=== PATIENT | male | born 1965 | race Caucasian/White ===

== ENCOUNTER 2023-02-17 10:12 | Emergency (ER) | payer OTHER, MEDICAID, SELFPAY ==
[2023-02-17 10:14] VITALS: BP 155/74; PULSE 94; RESP 14; TEMP 36.4; O2SAT 97; BMI 29.8
--- NOTE | 2023-02-17 11:21 | ED.SKABFB ---
HPI - Skin/Abscess/Foreign Bdy General Chief complaint: Skin/Abscess/Foreign Body Stated complaint: cracked heel/fungus Time Seen by Provider: 02/17/23 10:32 Source: patient Mode of arrival: Ambulatory Limitations: no limitations History of Present Illness HPI narrative: Patient is a 58-year-old male who is here for evaluation of what he thinks his fungus throughout his body. He states he has been dealing with this for the past 4 months. He states you can only see it when using a black light. He states that it is on his clothes and on his furniture at home. He uses a little roller and sees little white specks. He has seen Dermatology. He is completed 2 different courses of anti fungal medications but he states the symptoms are not improving. He states he is not seen his primary doctor. He was concerned about it being on his skin. He states that it is ?eating through his clothes? it is also getting into his lungs. Related Data Allergies Allergy/AdvReac Type Severity Reaction Status Date / Time No Known Drug Allergies Allergy Verified 02/17/23 10:30 Review of Systems Constitutional Constitutional: Reports system reviewed and no additional complaints, except as documented Respiratory Respiratory: Reports system reviewed and no additional complaints, except as documented Integumentary/Breasts Skin/Breast: Reports system reviewed and no additional complaints, except as documented Neurologic Neurologic: Reports system reviewed and no additional complaints, except as documented Patient History Social History Smoking Status: Unknown if ever smoked Smoking Status: Unknown if ever smoked alcohol intake frequency: holidays/special occasions only Substance Use Type: does not use Exam Initial Vital Signs Initial Vital Signs: Vital Signs Temperature 97.5 F L 02/17/23 10:14 Pulse Rate 94 H 02/17/23 10:14 Respiratory Rate 14 02/17/23 10:14 Blood Pressure 155/74 H 02/17/23 10:14 Pulse Oximetry 97 02/17/23 10:14 Oxygen Delivery Method Room Air 02/17/23 10:14 HENMT Head: normal to inspection Resp Effort & Inspection: normal respiratory effort Cardio Rate: regular rate Skin Other: He does have dry skin on his feet. There does not appear to be any cellulitis. Evaluation of his skin with a Wood's lamp does not show any signs of ringworm. Psych Other: Very anxious Course Vital Signs Vital signs: Vital Signs - 8 hr 02/17/23 10:14 Temperature 97.5 F L Pulse Rate 94 H Respiratory Rate 14 Blood Pressure 155/74 H Pulse Oximetry 97 Oxygen Delivery Method Room Air MDM - Skin/Abscess/Foreign Bdy MDM Narrative Medical decision making narrative: Patient is obviously very anxious about his symptoms. Informed him that unfortunately I could not do anything about the issues that he is having at home with regard to things that are on his clothes or are on his furniture. With the pictures that he is showing me and what we see here in the ER it looks more like lint/dirt/phos potentially skin cells. He is no skin findings that are consistent with ringworm. He was concerned about the cracks on his feet. What I see on his feet appears to be more length from his socks. I tried to informed him that there was nothing emergent. Nothing that I would treat with medications here in the ER. I advised that he follow-up with a yard supervisor. He states his yard supervisor is not getting him answers. I advised that he seek another yard supervisor. He was given examples for this. Also recommend that he follow-up with his primary doctor. He seemed very upset about this. He accused me of not listening to him. I did evaluate him thoroughly here in the ER. I do not think that there is an emergent condition. No indication for admission to the hospital. Discharge Plan Departure Patient Disposition: Home Clinical Impression: Dermatitis Activity Restrictions/Additional Instructions: For follow-up you can contact [facility]. There phone number is [phone]. You can also contact [facility] at [phone]. You can also contact the [facility] at [phone]. I also recommend that you contact your primary doctor. If you do not have a primary doctor you can contact [phone] without trying to find a primary provider. Referrals: Miscellaneous,MD Bacilio [Primary Care Provider] - Stand Alone Forms: Patient Portal/API
--- NOTE | 2023-02-17 11:33 | PC.NURSE ---
1030: Pt reports having fungus all over his body and that he has fungus all over his house and car.
== END 2023-02-17 11:27 | disposition home or self-care (01) ==
PROVIDERS: Emergency Provider Emergency Medicine
DX: L30.9 Dermatitis, unspecified (principal)
CPT/HCPCS: 99281

== ENCOUNTER → 2023-10-18 12:38 | Outpatient (CLI) | payer OTHER, MEDICAID, SELFPAY ==
--- NOTE | 2023-10-18 12:41 | DI.RAD.S_ITS ---
PROCEDURE: XR CHEST 2V INDICATIONS: dyspnea TECHNIQUE: 2 views of the chest were acquired. COMPARISON: None. FINDINGS: Surgical changes and devices: None. Lungs and pleura: Lungs are clear. No pleural effusions or pneumothorax. Mediastinum: Mediastinal contours are normal. Heart size is normal. Bones and chest wall: No suspicious bony abnormalities. Soft tissues appear unremarkable. IMPRESSION: No acute cardiopulmonary abnormality. Dictated by: Shaheed Burton M.D. on 10/18/2023 at 14:20 Approved by: Shaheed Burton M.D. on 10/18/2023 at 14:23
== END ==
PROVIDERS: PCP Family Medicine; Referring Provider Student in an Organized Health Care Education/Training Program; Visit Provider Student in an Organized Health Care Education/Training Program
DX: R06.00 Dyspnea, unspecified (principal); R94.2 Abnormal results of pulmonary function studies
CPT/HCPCS: 71046; 94060; 94726; 94729

== ENCOUNTER → 2024-01-12 09:39 | Outpatient (CLI) | payer OTHER, MEDICAID, SELFPAY | PROVIDERS: PCP Family Medicine; Referring Provider Family Medicine; Visit Provider Surgery | DX: L97.822 Non-pressure chronic ulcer of other part of left lower leg with fat layer exposed (principal); I87.2 Venous insufficiency (chronic) (peripheral); R60.0 Localized edema; L53.9 Erythematous condition, unspecified; L03.116 Cellulitis of left lower limb; E11.622 Type 2 diabetes mellitus with other skin ulcer | CPT/HCPCS: 97597; 97598; 99203; 99213 ==

== ENCOUNTER → 2024-01-13 09:35 | Outpatient (CLI) | payer OTHER, MEDICAID, SELFPAY | PROVIDERS: PCP Family Medicine; Referring Provider Family Medicine; Visit Provider Physician Assistant | DX: L97.822 Non-pressure chronic ulcer of other part of left lower leg with fat layer exposed (principal); I87.2 Venous insufficiency (chronic) (peripheral); R60.0 Localized edema; L53.9 Erythematous condition, unspecified; M79.662 Pain in left lower leg | CPT/HCPCS: 99213 ==

== ENCOUNTER → 2024-01-19 11:50 | Outpatient (CLI) | payer OTHER, MEDICAID, SELFPAY | PROVIDERS: PCP Family Medicine; Referring Provider Family Medicine; Visit Provider Surgery | DX: L97.822 Non-pressure chronic ulcer of other part of left lower leg with fat layer exposed (principal); I87.2 Venous insufficiency (chronic) (peripheral); R60.0 Localized edema; L03.116 Cellulitis of left lower limb; E11.622 Type 2 diabetes mellitus with other skin ulcer; M79.662 Pain in left lower leg; Z79.2 Long term (current) use of antibiotics | CPT/HCPCS: 11042; 11045 ==

== ENCOUNTER → 2024-01-24 10:27 | Outpatient (CLI) | payer OTHER, MEDICAID, SELFPAY | PROVIDERS: PCP Family Medicine; Referring Provider Family Medicine; Visit Provider Surgery | DX: L97.822 Non-pressure chronic ulcer of other part of left lower leg with fat layer exposed (principal); I87.2 Venous insufficiency (chronic) (peripheral); E11.622 Type 2 diabetes mellitus with other skin ulcer; R60.0 Localized edema; L53.9 Erythematous condition, unspecified; M79.662 Pain in left lower leg | CPT/HCPCS: 11042; 11045 ==

== ENCOUNTER → 2024-02-01 15:10 | Outpatient (CLI) | payer OTHER, MEDICAID, SELFPAY | PROVIDERS: PCP Family Medicine; Referring Provider Family Medicine; Visit Provider Surgery | DX: L97.822 Non-pressure chronic ulcer of other part of left lower leg with fat layer exposed (principal); I87.2 Venous insufficiency (chronic) (peripheral); R60.0 Localized edema; L53.9 Erythematous condition, unspecified; E11.622 Type 2 diabetes mellitus with other skin ulcer; M79.662 Pain in left lower leg | CPT/HCPCS: 11042 ==

== ENCOUNTER → 2024-02-08 14:09 | Outpatient (CLI) | payer OTHER, MEDICAID, SELFPAY | PROVIDERS: PCP Family Medicine; Referring Provider Family Medicine; Visit Provider Surgery | DX: L97.822 Non-pressure chronic ulcer of other part of left lower leg with fat layer exposed (principal); I87.2 Venous insufficiency (chronic) (peripheral); L53.9 Erythematous condition, unspecified; R60.0 Localized edema; M79.662 Pain in left lower leg | CPT/HCPCS: 87070; 87075; 87077; 87147; 87186; 87205; 99213 ==

== ENCOUNTER → 2024-02-15 14:18 | Outpatient (CLI) | payer OTHER, MEDICAID, SELFPAY | PROVIDERS: PCP Family Medicine; Referring Provider Family Medicine; Visit Provider Surgery | DX: I87.2 Venous insufficiency (chronic) (peripheral) (principal); L97.222 Non-pressure chronic ulcer of left calf with fat layer exposed; R23.4 Changes in skin texture; L08.89 Other specified local infections of the skin and subcutaneous tissue; B95.7 Other staphylococcus as the cause of diseases classified elsewhere; R60.0 Localized edema; E11.40 Type 2 diabetes mellitus with diabetic neuropathy, unspecified; I10 Essential (primary) hypertension | CPT/HCPCS: 11042 ==

== ENCOUNTER → 2024-03-01 13:36 | Outpatient (CLI) | payer OTHER, MEDICAID, SELFPAY | PROVIDERS: PCP Family Medicine; Referring Provider Family Medicine; Visit Provider Surgery | DX: L97.822 Non-pressure chronic ulcer of other part of left lower leg with fat layer exposed (principal); I87.2 Venous insufficiency (chronic) (peripheral); L53.9 Erythematous condition, unspecified; R60.0 Localized edema; E11.622 Type 2 diabetes mellitus with other skin ulcer; L08.89 Other specified local infections of the skin and subcutaneous tissue; Z79.2 Long term (current) use of antibiotics | CPT/HCPCS: 11042 ==

== ENCOUNTER → 2024-03-08 13:32 | Outpatient (CLI) | payer OTHER, MEDICAID, SELFPAY | PROVIDERS: PCP Family Medicine; Referring Provider Family Medicine; Visit Provider Surgery | DX: E11.622 Type 2 diabetes mellitus with other skin ulcer (principal); L97.822 Non-pressure chronic ulcer of other part of left lower leg with fat layer exposed; I87.2 Venous insufficiency (chronic) (peripheral); L53.9 Erythematous condition, unspecified; R60.0 Localized edema; M79.662 Pain in left lower leg | CPT/HCPCS: 11042; 99213 ==

== ENCOUNTER → 2024-03-15 12:59 | Outpatient (CLI) | payer OTHER, MEDICAID, SELFPAY | PROVIDERS: PCP Family Medicine; Referring Provider Family Medicine; Visit Provider Surgery | DX: L97.822 Non-pressure chronic ulcer of other part of left lower leg with fat layer exposed (principal); I87.2 Venous insufficiency (chronic) (peripheral); L53.9 Erythematous condition, unspecified; R60.0 Localized edema; E11.622 Type 2 diabetes mellitus with other skin ulcer | CPT/HCPCS: 11042 ==

== ENCOUNTER → 2024-03-19 08:58 | Outpatient (CLI) | payer OTHER, MEDICAID, SELFPAY | PROVIDERS: PCP Family Medicine; Referring Provider Family Medicine; Visit Provider Surgery | DX: L97.822 Non-pressure chronic ulcer of other part of left lower leg with fat layer exposed (principal); I87.2 Venous insufficiency (chronic) (peripheral); R60.0 Localized edema; L53.9 Erythematous condition, unspecified | CPT/HCPCS: 29581 ==

== ENCOUNTER → 2024-03-22 11:31 | Outpatient (CLI) | payer OTHER, MEDICAID, SELFPAY | PROVIDERS: PCP Family Medicine; Referring Provider Family Medicine; Visit Provider Surgery | DX: I87.2 Venous insufficiency (chronic) (peripheral) (principal); L97.822 Non-pressure chronic ulcer of other part of left lower leg with fat layer exposed; R60.0 Localized edema; E11.40 Type 2 diabetes mellitus with diabetic neuropathy, unspecified; I10 Essential (primary) hypertension | CPT/HCPCS: 11042 ==

== ENCOUNTER → 2024-03-26 08:34 | Outpatient (CLI) | payer OTHER, MEDICAID, SELFPAY | LOC: WC 08:37 | PROVIDERS: PCP Family Medicine; Referring Provider Family Medicine; Visit Provider Surgery | DX: I87.2 Venous insufficiency (chronic) (peripheral) (principal); L97.822 Non-pressure chronic ulcer of other part of left lower leg with fat layer exposed; L53.8 Other specified erythematous conditions; L98.8 Other specified disorders of the skin and subcutaneous tissue; R60.0 Localized edema | CPT/HCPCS: 29581 ==

== ENCOUNTER → 2024-03-29 10:20 | Outpatient (CLI) | payer OTHER, MEDICAID, SELFPAY | PROVIDERS: PCP Family Medicine; Referring Provider Family Medicine; Visit Provider Surgery | DX: I87.2 Venous insufficiency (chronic) (peripheral) (principal); L97.822 Non-pressure chronic ulcer of other part of left lower leg with fat layer exposed; R60.0 Localized edema; L53.8 Other specified erythematous conditions; L98.8 Other specified disorders of the skin and subcutaneous tissue; E11.622 Type 2 diabetes mellitus with other skin ulcer | CPT/HCPCS: 11042 ==

== ENCOUNTER → 2024-04-02 14:32 | Outpatient (CLI) | payer OTHER, MEDICAID, SELFPAY | PROVIDERS: PCP Family Medicine; Referring Provider Family Medicine; Visit Provider Surgery | DX: I87.2 Venous insufficiency (chronic) (peripheral) (principal); L97.822 Non-pressure chronic ulcer of other part of left lower leg with fat layer exposed; L53.8 Other specified erythematous conditions; L98.8 Other specified disorders of the skin and subcutaneous tissue; R60.0 Localized edema | CPT/HCPCS: 29581 ==

== ENCOUNTER → 2024-04-05 11:17 | Outpatient (CLI) | payer OTHER, MEDICAID, SELFPAY | LOC: WC 11:25 | PROVIDERS: PCP Family Medicine; Referring Provider Family Medicine; Visit Provider Surgery | DX: I87.2 Venous insufficiency (chronic) (peripheral) (principal); L97.222 Non-pressure chronic ulcer of left calf with fat layer exposed; L03.116 Cellulitis of left lower limb; L53.8 Other specified erythematous conditions; L98.8 Other specified disorders of the skin and subcutaneous tissue | CPT/HCPCS: 11042; 99213 ==

== ENCOUNTER → 2024-04-09 11:01 | Outpatient (CLI) | payer OTHER, MEDICAID, SELFPAY | LOC: WC 11:02 | PROVIDERS: PCP Family Medicine; Referring Provider Family Medicine; Visit Provider Surgery | DX: I87.2 Venous insufficiency (chronic) (peripheral) (principal); L97.822 Non-pressure chronic ulcer of other part of left lower leg with fat layer exposed; L98.8 Other specified disorders of the skin and subcutaneous tissue; L53.8 Other specified erythematous conditions | CPT/HCPCS: 29581 ==

== ENCOUNTER → 2024-04-12 10:59 | Outpatient (CLI) | payer OTHER, MEDICAID, SELFPAY | LOC: WC 11:02 | PROVIDERS: PCP Family Medicine; Referring Provider Family Medicine; Visit Provider Surgery | DX: I87.2 Venous insufficiency (chronic) (peripheral) (principal); L97.822 Non-pressure chronic ulcer of other part of left lower leg with fat layer exposed; E11.40 Type 2 diabetes mellitus with diabetic neuropathy, unspecified; L53.8 Other specified erythematous conditions; L98.8 Other specified disorders of the skin and subcutaneous tissue; R60.0 Localized edema | CPT/HCPCS: 11042; 87070; 87075; 87077; 87147; 87186; 87205; 99213 ==

== ENCOUNTER → 2024-04-16 10:46 | Outpatient (CLI) | payer OTHER, MEDICAID, SELFPAY | LOC: WC 10:51 | PROVIDERS: PCP Family Medicine; Referring Provider Family Medicine; Visit Provider Surgery | DX: L97.812 Non-pressure chronic ulcer of other part of right lower leg with fat layer exposed (principal); L97.822 Non-pressure chronic ulcer of other part of left lower leg with fat layer exposed; I87.2 Venous insufficiency (chronic) (peripheral); L53.9 Erythematous condition, unspecified; R60.0 Localized edema | CPT/HCPCS: 29581 ==

== ENCOUNTER → 2024-04-19 11:26 | Outpatient (CLI) | payer OTHER, MEDICAID, SELFPAY | LOC: WC 11:28 | PROVIDERS: PCP Family Medicine; Referring Provider Family Medicine; Visit Provider Surgery | DX: L97.812 Non-pressure chronic ulcer of other part of right lower leg with fat layer exposed (principal); I87.2 Venous insufficiency (chronic) (peripheral); L53.9 Erythematous condition, unspecified; R60.0 Localized edema; E11.622 Type 2 diabetes mellitus with other skin ulcer | CPT/HCPCS: 11042; 29581 ==

== ENCOUNTER → 2024-04-23 11:43 | Outpatient (CLI) | payer OTHER, MEDICAID, SELFPAY | PROVIDERS: PCP Family Medicine; Referring Provider Family Medicine; Visit Provider Surgery | DX: I87.2 Venous insufficiency (chronic) (peripheral) (principal); L97.812 Non-pressure chronic ulcer of other part of right lower leg with fat layer exposed; L53.8 Other specified erythematous conditions; R60.0 Localized edema | CPT/HCPCS: 29581 ==

== ENCOUNTER → 2024-04-26 11:13 | Outpatient (CLI) | payer OTHER, MEDICAID, SELFPAY | PROVIDERS: PCP Family Medicine; Referring Provider Family Medicine; Visit Provider Surgery | DX: I87.2 Venous insufficiency (chronic) (peripheral) (principal); R60.0 Localized edema; E11.40 Type 2 diabetes mellitus with diabetic neuropathy, unspecified | CPT/HCPCS: 99213 ==

== ENCOUNTER → 2024-05-03 10:58 | Outpatient (CLI) | payer OTHER, MEDICAID, SELFPAY ==
--- NOTE | 2024-05-03 | OV.WND_ITS ---
PROGRESS NOTE DETAILS PATIENT NAME: KIANA TELLEZ. PATIENT NUMBER: [id number] CLINICIAN: JANNA MILTON PATIENT DATE OF : 1965 PHYSICIAN / DEVULCANIZER OPERATOR: CHRISTOPHER STONE PATIENT SUBJECTIVE CHIEF COMPLAINT THIS INFORMATION WAS OBTAINED FROM THE PATIENT. PAIN ALLERGIES METFORMIN (REACTION: ANXIETY, DIARRHEA, GI INTOLERANCE, ITCHING, SWELLING) HPI THIS INFORMATION WAS OBTAINED FROM THE PATIENT. THE FOLLOWING HPI ELEMENTS WERE DOCUMENTED FOR THE PATIENT'S WOUND: LOCATION: [facility] DURATION: 05/03/24 CONTEXT: VENOUS PATIENT IS A 59-YEAR-OLD MALE WITH DIABETES AND CHRONIC VENOUS INSUFFICIENCY WHO RETURNS TODAY FOR EVALUATION OF A NEW ULCER ON THE ANTERIOR RIGHT LOWER EXTREMITY. THE PATIENT REPORTS HE IS HAVING SOME PAIN AND SOME SEROUS DRAINAGE. HE HAS BEEN STANDING MORE THAN USUAL. THE PATIENT HAS BEEN USING VELCRO WRAPS TO HELP CONTROL SWELLING. THE PATIENT SLEEPS SITTING UPRIGHT IN A CHAIR WITH THE HIS LEGS IN THE DEPENDENT POSITION. OTHER ULCERS ON BOTH LOWER EXTREMITIES WERE NOTED TO BE HEALED AT HIS LAST VISIT ON APRIL 26, 2024. THE PATIENT REPORTS A GOOD APPETITE AND DENIES HAVING ANY OTHER RECENT CHANGES IN HIS OVERALL HEALTH. PREVIOUS ABIS SHOWED FLOW ADEQUATE FOR HEALING. RECENT HEMOGLOBIN A1C WAS 10. THE PATIENT REMAINS CONVINCED THAT HE HAS EXTENSIVE FUNGUS ALL OVER HIS BODY. HE IS STILL ON 90 MG OF HYDROCODONE EACH DAY FOR SCIATICA. LABS 04/12/24: CULTURES GREW STAPHYLOCOCCUS AUREUS AND STREPTOCOCCUS GROUP B 02/08/24: CULTURES GREW STAPHYLOCOCCUS LUGDUNENSIS FAMILY HISTORY THIS INFORMATION WAS OBTAINED FROM THE PATIENT. DIABETES- FATHER SOCIAL HISTORY THIS INFORMATION WAS OBTAINED FROM THE CHART, PATIENT. NEVER SMOKER MEDICAL HISTORY THIS INFORMATION WAS OBTAINED FROM THE CHART, PATIENT. 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 PATIENT HAS A SURGICAL HISTORY OF: ANKLE FRACTURE SURGERY- APPENDECTOMY- HERNIA REPAIR- SPINE SURGERY- UMBILICAL HERNIA REPAIR- REVIEW OF SYSTEMS (ROS) THIS INFORMATION WAS OBTAINED FROM THE PATIENT. COMPLAINTS AND SYMPTOMS PATIENT COM PLAINS OF: CARDIOVASCULAR (CENTRAL): DYSPNEA ON EXERTION CO-MORBID CONDITIONS: DIABETES, VENOUS INSUFFIENCY HEMATOLOGIC/LYMPHATIC: SWELLING PRIOR WOUND HISTORY: BLEEDING, DRAINAGE, ERYTHEMA, MALODOR, PAIN PATIENT DENIES COM PLAINTS OR SY M PTOM S RELATED TO: CARDIOVASCULAR (CENTRAL): CHEST PAIN CONSTITUTIONAL SYMPTOMS (GENERAL HEALTH): CHILLS, FEVER, LOSS OF APPETITE RESPIRATORY: COUGH, SHORTNESS OF BREATH OBJECTIVE VITALS HEIGHT/LENGTH: 72 IN (182.88 CM), WEIGHT: 249 LBS (113.18 KGS), BMI: 33.8, TEMPERATURE: 97.3 ?F (36.28 ?C), PULSE: 98 BPM, RESPIRATORY RATE: 16 BREATHS/MIN, BLOOD PRESSURE: 139/80 MMHG, PULSE OXIMETRY: 100 %. PHYSICAL EXAM KIANA TELLEZ [id number] 1965 CONSTITUTIONAL: VITAL SIGNS REVIEWED AND NOTED. WELL DEVELOPED, WELL NOURISHED, AND IN NO ACUTE DISTRESS. ALERT AND ORIENTED X3. RESPIRATORY: EVEN RESPIRATIONS WITHOUT USE OF ACCESSORY MUSCLES. NO INTERCOASTAL RETRACTIONS NOTED. EVEN AND NON LABORED RESPIRATION. INTEGUMENTARY (HAIR, SKIN): MILD ERYTHEMA. BILATERAL LOWER EXTREMITY EDEMA. SEE WOUND ASSESSMENT. SKIN WARM AND DRY. NO RASHES. NEUROLOGICAL: SENSATION: SYMMETRIC FUNCTION BY INFORMAL OBSERVATION. PSYCHIATRIC: ORIENTATION TO TIME, PLACE AND PERSON: NORMAL AFFECT WITH NORMAL THOUGHT PATTERN. ADDITIONAL INFORMATION THE PATIENT'S POTENTIAL TO HEAL IS: GOOD. LOWER EXTREMITY ASSESSMENT EDEMA ASSESSMENT: LEFT EXTREMITY: EDEMA IS PRESENT COMPRESSION DEVICE IN USE: YES DEVICE USED CORRECTLY: YES DEVICE IN USE: COMPRESSION STOCKINGS CALF MEASUREMENT 37 CM FROM HEEL WITH LEFT MEASUREMENT OF 45 CM ANKLE MEASUREMENT 5 CM FROM MALEOLOUS WITH LEFT MEASUREMENT OF 29.5 CM FOOT MEASUREMENT 15 CM FROM HEEL WITH LEFT MEASUREMENT OF 26 CM RIGHT EXTREMITY: EDEMA IS PRESENT COMPRESSION DEVICE IN USE: YES DEVICE USED CORRECTLY: YES DEVICE IN USE: COMPRESSION STOCKINGS CALF MEASUREMENT 37 CM FROM HEEL WITH RIGHT MEASUREMENT OF 47.5 CM ANKLE MEASUREMENT 5 CM FROM MALEOLOUS WITH RIGHT MEASUREMENT OF 33 CM FOOT MEASUREMENT 15 CM FROM HEEL WITH RIGHT MEASUREMENT OF 26.2 CM VASCULAR ASSESSMENT LEFT EXTREMITY COLORS, HAIR GROWTH, AND CONDITIONS: EXTREMITY COLOR: PIGMENTED HAIR GROWTH ON EXTREMITY: NO TEMPERATURE OF EXTREMITY: WARM CAPILARY REFILL: < 3 SECONDS ERYTHEMA: YES RIGHT EXTREMITY COLORS, HAIR GROWTH, AND CONDITIONS: EXTREMITY COLOR: PIGMENTED HAIR GROWTH ON EXTREMITY: NO TEMPERATURE OF EXTREMITY: WARM CAPILARY REFILL: < 3 SECONDS ERYTHEMA: NO WOUND ASSESSMENT(S) WOUND #4 RIGHT LEG IS AN ACUTE PARTIAL THICKNESS VENOUS ULCER ACQUIRED ON 05/03/2024 AND HAS RECEIVED A STATUS OF NOT HEALED. INITIAL WOUND ENCOUNTER MEASUREMENTS ARE 0.5CM LENGTH X 4.3CM WIDTH X 0.1 CM DEPTH, WITH AN AREA OF 2.15 SQ CM AND A VOLUME OF 0.215 CUBIC CM. NO TUNNELING HAS BEEN NOTED. NO SINUS TRACT HAS BEEN NOTED. NO UNDERMINING HAS BEEN NOTED. THERE IS A MODERATE AMOUNT OF SEROUS DRAINAGE NOTED. THE PATIENT REPORTS A WOUND PAIN OF LEVEL 0/10. THE WOUND MARGIN IS ATTACHED WOUND BED HAS NO, GRANULATION, NO SLOUGH, NO ESCHAR, NO EPITHELIALIZATION. THE PERIWOUND SKIN EXHIBITED EDEMA AND HEMOSIDEROSIS. THE TEMPERATURE OF THE PERIWOUND SKIN IS WNL. LOCAL PULSE IS PALPABLE. ADDITIONAL INFORMATION OTHER DEVITALIZED TISSUE PRESENT: KIANA MILLER [id number] 1965 ASSESSMENT ACTIVE PROBLEMS ICD-10 (ENCOUNTER DIAGNOSIS) I87.2 - VENOUS INSUFFICIENCY (CHRONIC) (PERIPHERAL) (ENCOUNTER DIAGNOSIS) R60.0 - LOCALIZED EDEMA (ENCOUNTER DIAGNOSIS) L97.811 - NON-PRESSURE CHRONIC ULCER OF OTHER PART OF RIGHT LOWER LEG LIMITED TO BREAKDOWN OF SKIN GENERAL NOTES ULCER ANTERIOR RIGHT LOWER EXTREMITY, NO SIGN OF INFECTION THE FOLLOWING FACTORS HAVE BEEN IDENTIFIED THAT MAY AFFECT WOUND HEALING: DEVITALIZED TISSUE BIOFILM EDEMA VENOUS INSUFFICIENCY DIABETES INFECTION GOALS: REMOVE DEVITALIZED TISSUE REMOVE AND PREVENT BIOFILM TREAT INFECTION REDUCE SWELLING WOUND CLOSURE PREVENT RECURRENCE PLAN: MECHANICAL DEBRIDEMENT, START DRESSING CHANGES WITH XEROFORM AND BILATERAL REGULAR MULTILAYER COMPRESSION. THE PATIENT ADVISED TO KEEP HER LEGS ELEVATED MUCH POSSIBLE, CONTINUE PROTEIN SUPPLEMENTATION, FOLLOW UP IN 1 WEEK FOR A RECHECK. PROCEDURES WOUND #4 WOUND #4 (VENOUS ULCER) IS LOCATED ON THE RIGHT LEG. A MULTILAYER COMPRESSION PROCEDURE WAS PERFORMED FOR THE LOWER RIGHT EXTREMITY BY JANNA MILTON RN. A 2 LAYER COBAN WRAP WAS APPLIED. THE PROCEDURE WAS TOLERATED WELL WITH A PAIN LEVEL OF 0 THROUGHOUT AND A PAIN LEVEL OF 0 FOLLOWING THE PROCEDURE. GENERAL NOTES COBAN 2 REGULARS A MULTILAYER COMPRESSION PROCEDURE WAS PERFORMED FOR THE LOWER LEFT EXTREMITY BY JANNA MILTON RN. A 2 LAYER COBAN WRAP WAS APPLIED. THE PROCEDURE WAS TOLERATED WELL WITH A PAIN LEVEL OF 0 THROUGHOUT AND A PAIN LEVEL OF 0 FOLLOWING THE PROCEDURE. GENERAL NOTES COBAN 2 REGULARS APPLIED TO HELP MANAGE SEVERE LE EDEMA KIANA GREEN [id number] 1965 WOUND ORDERS: WOUND #4 RIGHT LEG CLEANSER CLEANSE WOUND WITH NORMAL SALINE CLEANSE WOUND WITH HYPOCHLOROUS ACID (VASHE OR SIMILAR) THEN APPLY HYPOCHLOROUS ACID SOAKED 4X4 GAUZE TO WOUND BED FOR 5-10 MINUTES AFTER WOUND ASSESSMENT COMPLETED. DRESSING ORDERS APPLY DRESSING(S) AND SECURE WITH: - XEROFORM, ABD ADDITIONAL ORDERS: DRESSING CHANGE FREQUENCY LEAVE DRESSING INTACT UNTIL YOUR NEXT WOUND CENTER APPOINTMENT. KEEP DRY. COMPRESSION/EDEMA CONTROL ELEVATE LEG(S) ABOVE THE LEVEL OF THE HEART MUCH POSSIBLE. AVOID STANDING IN ONE POSITION FOR MORE THAN 10 MINUTES. AVOID SITTING WITH LEGS DOWN. DO NOT CROSS LEGS WHEN SITTING. APPLY MULTI LAYER WRAP TO AFFECTED LEG(S) AT 20-30MMHG. - COBAN 2 REGULARS BILATERALLY DIETARY TAKE VITAMIN C 1000MG BY MOUTH DAILY. TAKE ZINC 25MG BY MOUTH DAILY. FOLLOW A DIABETIC DIET. INCREASE THE PROTEIN IN YOUR DIET. - DIABETIC PROTEIN SUPPLEMENT SUCH GLUCERNA. FOLLOW-UP APPOINTMENTS RETURN APPOINTMENT 1 WEEK SCRIBING ATTESTATION I ATTEST, THE NURSE, THAT I SCRIBED THESE ORDERS FOR THE WOUND CARE PROVIDER. PROVIDER REVIEW AND ATTESTATION: REVIEWED AND EVALUATED LABS. REVIEWED HOSPITAL RECORDS. DISCUSSED THE PLAN OF CARE @ BEDSIDE WITH - THE PATIENT I AGREE AND ATTEST TO THE ABOVE INFORMATION PROVIDED FROM OTHER LICENSED PROFESSIONALS. PLAN OF CARE: 01. ENSURE/ESTABLISH OPTIMAL BLOOD FLOW : - COMPLETE LOWER EXTREMITY ASSESSMENT STATUS: CONTINUED DATE: 05/03/2024 - PERFORM NON-INVASIVE VASCULAR TESTING (I.E. MERE) AND DOCUMENT FINDINGS. CONSIDER REPEATING WHEN WOUND HEALING <40% AFTER 30 DAYS OF WOUND CARE. STATUS: COMPLETED DATE: 02/01/2024 02. ASSESS FOR/TREAT INFECTION : - EVALUATE FOR SIGNS AND SYMPTOMS OF INFECTION AND DOCUMENT FINDINGS. STATUS: CONTINUED DATE: 05/03/2024 - OBTAIN CULTURE AND SENSITIVITY (CANDS) OR TISSUE CULTURE WHEN INFECTION IS SUSPECTED. (NOTE:) CONSIDER REPEATING WHEN WOUND HEALING <40% AFTER 30 DAYS OF WOUND CARE. STATUS: CONTINUED DATE: 05/03/2024 03. DEBRIDE WEEKLY OR MORE OFTEN PRN : - EVALUATE PATIENT IN CENTER WEEKLY TO ASSESS WOUND BED AND MARGINS FOR NEED FOR DEBRIDEMENT. STATUS: CONTINUED DATE: 05/03/2024 04. OPTIMIZE GLUCOSE CONTROL AND NUTRITION : - ORDER/REVIEW PERTINENT LABS TO EVALUATE RENAL FUNCTION, GLUCOSE CONTROL, AND NUTRITIONAL STATUS. STATUS: CONTINUED DATE: 05/03/2024 05. OFFLOADING PLAN : - REVIEWED, NOT APPLICABLE 06. OPTIMIZE HOST FACTORS: - ASSESS AND REVIEW PATIENT HISTORY FOR WOUND ETIOLOGY, CO-MORBID CONDITIONS, MEDICATION REGIME, AND SMOKING HISTORY. KIANA TELLEZ [id number] 1965 STATUS: CONTINUED DATE: 03/08/2024 07. DRESSING SELECTION : - EVALUATE FOR DRESSING-RELATED FACTORS, SUCH AVAILABILITY, WEAR TIME, ADAPTABILITY AND USE TO BETTER OPTIMIZE WOUND HEALING AND PATIENT COMPLIANCE. STATUS: CONTINUED DATE: 05/03/2024 08. ADVANCED MODALITIES : - EVALUATE FOR APPROPRIATENESS OF CELLULAR TISSUE PRODUCT THERAPY. STATUS: CONTINUED DATE: 04/05/2024 09. FALL PREVENTION : - COMPLETE FALL ASSESSMENT. STATUS: COMPLETED DATE: 01/12/2024 10. PAIN MANAGEMENT : - COMPLETE PAIN ASSESSMENT STATUS: CONTINUED DATE: 05/03/2024 11. MEASURABLE GOALS FOR WOUND HEALING AND/OR HYPERBARIC OXYGEN THERAPY : - WOUND CLOSURE STATUS: CONTINUED DATE: 05/03/2024 12. DURATION/FREQUENCY OF WOUND CARE VISITS : - 1X WEEKLY FOR 30 DAYS STATUS: CONTINUED DATE: 05/03/2024 ELECTRONIC SIGNATURE(S) SIGNED BY: DATE: CHRISTOPHER STONE MD 05/03/2024 15:47:55 (PT) ENTERED BY: CHRISTOPHER STONE MD ON 05/03/2024 15:40:09 (PT) KIANA TELLEZ [id number] 1965
== END ==
PROVIDERS: PCP Family Medicine; Referring Provider Family Medicine; Visit Provider Surgery
DX: I87.2 Venous insufficiency (chronic) (peripheral) (principal); L97.811 Non-pressure chronic ulcer of other part of right lower leg limited to breakdown of skin; R60.0 Localized edema; L98.8 Other specified disorders of the skin and subcutaneous tissue
CPT/HCPCS: 29581; 99213

== ENCOUNTER → 2024-05-08 10:19 | Outpatient (CLI) | payer OTHER, MEDICAID, SELFPAY ==
--- NOTE | 2024-05-08 | OV.WND_ITS ---
PROGRESS NOTE DETAILS PATIENT NAME: KIANA TELLEZ. PATIENT NUMBER: [id number] CLINICIAN: JANNA MILTON PATIENT DATE OF : 1965 PHYSICIAN / BATTERY PLATE ASSEMBLER: CHRISTOPHER STONE PATIENT SUBJECTIVE CHIEF COMPLAINT THIS INFORMATION WAS OBTAINED FROM THE PATIENT. SOME NUMBNESS.. BUT SWELLING IS A LITTLE BETTER ALLERGIES METFORMIN (REACTION: ANXIETY, DIARRHEA, GI INTOLERANCE, ITCHING, SWELLING) HPI THIS INFORMATION WAS OBTAINED FROM THE PATIENT. THE FOLLOWING HPI ELEMENTS WERE DOCUMENTED FOR THE PATIENT'S WOUND: LOCATION: [facility] DURATION: 05/03/24 CONTEXT: VENOUS PATIENT IS A 59-YEAR-OLD MALE WITH DIABETES AND CHRONIC VENOUS INSUFFICIENCY WHO RETURNS TODAY FOR EVALUATION OF A NEW ULCER ON THE ANTERIOR RIGHT LOWER EXTREMITY. HE IS RECEIVING DRESSING CHANGES WITH XEROFORM GAUZE WITH BILATERAL REGULAR MULTILAYER COMPRESSION. THE PATIENT DENIES HAVING ANY UNUSUAL PAIN OR DISCOMFORT NOR HAS HE HAD ANY FEVER OR CHILLS. THE PATIENT SLEEPS SITTING UPRIGHT IN A CHAIR WITH THE HIS LEGS IN THE DEPENDENT POSITION. THE PATIENT REPORTS A GOOD APPETITE AND DENIES HAVING ANY OTHER RECENT CHANGES IN HIS OVERALL HEALTH. ON EXAM TODAY THE SCATTERED ULCERATIONS OF THE RIGHT LOWER EXTREMITY APPEAR TO BE IMPROVED, NO SIGN OF INFECTION. PREVIOUS ABIS SHOWED FLOW ADEQUATE FOR HEALING. RECENT HEMOGLOBIN A1C WAS 10. THE PATIENT REMAINS CONVINCED THAT HE HAS EXTENSIVE FUNGUS ALL OVER HIS BODY. HE IS STILL ON 90 MG OF HYDROCODONE EACH DAY FOR SCIATICA. LABS 04/12/24: CULTURES GREW STAPHYLOCOCCUS AUREUS AND STREPTOCOCCUS GROUP B 02/08/24: CULTURES GREW STAPHYLOCOCCUS LUGDUNENSIS MEDICAL HISTORY THIS INFORMATION WAS OBTAINED FROM THE CHART, PATIENT. 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 PATIENT HAS A SURGICAL HISTORY OF: ANKLE FRACTURE SURGERY- APPENDECTOMY- HERNIA REPAIR- SPINE SURGERY- UMBILICAL HERNIA REPAIR- OBJECTIVE VITALS HEIGHT/LENGTH: 72 IN (182.88 CM), WEIGHT: 249 LBS (113.18 KGS), BMI: 33.8, TEMPERATURE: 97.3 ?F (36.28 ?C), PULSE: 103 BPM, RESPIRATORY RATE: 16 BREATHS/MIN, BLOOD PRESSURE: 147/77 MMHG, PULSE OXIMETRY: 98 %. PHYSICAL EXAM CONSTITUTIONAL: VITAL SIGNS REVIEWED AND NOTED. WELL DEVELOPED, WELL NOURISHED, AND IN NO ACUTE DISTRESS. ALERT AND ORIENTED X3. RESPIRATORY: EVEN RESPIRATIONS WITHOUT USE OF ACCESSORY MUSCLES. NO INTERCOASTAL RETRACTIONS NOTED. EVEN AND NON LABORED RESPIRATION. INTEGUMENTARY (HAIR, SKIN): MILD ERYTHEMA, UNCHANGED. BILATERAL LOWER EXTREMITY EDEMA. SEE WOUND ASSESSMENT. SKIN WARM AND DRY. NO RASHES. NEUROLOGICAL: SENSATION: SYMMETRIC FUNCTION BY INFORMAL OBSERVATION. PSYCHIATRIC: ORIENTATION TO TIME, PLACE AND PERSON: NORMAL AFFECT WITH NORMAL THOUGHT PATTERN. ADDITIONAL INFORMATION THE PATIENT'S POTENTIAL TO HEAL IS: FAIR. WOUND ASSESSMENT(S) WOUND #4 RIGHT LEG IS AN ACUTE PARTIAL THICKNESS VENOUS ULCER ACQUIRED ON 05/03/2024 AND HAS RECEIVED A STATUS OF NOT HEALED. INITIAL WOUND ENCOUNTER MEASUREMENTS ARE 0.3CM LENGTH X 1.5CM WIDTH X 0.1 CM DEPTH, WITH AN AREA OF 0.45 SQ CM AND A VOLUME OF 0.045 CUBIC CM.INITIAL WOUND ENCOUNTER PREVIOUS MEASUREMENTS FROM 05/03/2024 ARE 0.5CM LENGTH X 4.3CM WIDTH X 0.1CM DEPTH, WITH AN AREA OF 2.15 SQ CM AND A VOLUME OF 0.215 CUBIC CM. NO TUNNELING HAS BEEN NOTED. NO SINUS TRACT HAS BEEN NOTED. NO UNDERMINING HAS BEEN NOTED. THERE IS A MODERATE AMOUNT OF SEROUS DRAINAGE NOTED. THE PATIENT REPORTS A WOUND PAIN OF LEVEL 0/10. THE WOUND MARGIN IS ATTACHED WOUND BED HAS NO, GRANULATION, NO SLOUGH, NO ESCHAR, NO EPITHELIALIZATION. THE PERIWOUND SKIN EXHIBITED EDEMA AND HEMOSIDEROSIS. THE TEMPERATURE OF THE PERIWOUND SKIN IS KIANA TELLEZ [id number] 1965 WNL. LOCAL PULSE IS PALPABLE. GENERAL NOTES SCATTERED WEEPING AREAS IN GATOR REGION. LARGEST ANTERIOR AREA MEASURED ADDITIONAL INFORMATION OTHER DEVITALIZED TISSUE PRESENT: BIOFILM ASSESSMENT ACTIVE PROBLEMS ICD-10 (ENCOUNTER DIAGNOSIS) I87.2 - VENOUS INSUFFICIENCY (CHRONIC) (PERIPHERAL) (ENCOUNTER DIAGNOSIS) R60.0 - LOCALIZED EDEMA (ENCOUNTER DIAGNOSIS) L97.811 - NON-PRESSURE CHRONIC ULCER OF OTHER PART OF RIGHT LOWER LEG LIMITED TO BREAKDOWN OF SKIN GENERAL NOTES ULCER ANTERIOR RIGHT LOWER EXTREMITY, IMPROVED, STILL HAS BILATERAL LOWER EXTREMITY EDEMA THE FOLLOWING FACTORS HAVE BEEN IDENTIFIED THAT MAY AFFECT WOUND HEALING: DEVITALIZED TISSUE BIOFILM EDEMA VENOUS INSUFFICIENCY DIABETES INFECTION GOALS: REMOVE DEVITALIZED TISSUE REMOVE AND PREVENT BIOFILM TREAT INFECTION REDUCE SWELLING WOUND CLOSURE PREVENT RECURRENCE PLAN: MECHANICAL DEBRIDEMENT, CONTINUE DRESSING CHANGES WITH XEROFORM AND BILATERAL REGULAR MULTILAYER COMPRESSION. THE PATIENT ADVISED TO KEEP HER LEGS ELEVATED MUCH POSSIBLE, CONTINUE PROTEIN SUPPLEMENTATION, FOLLOW UP IN 1 WEEK FOR A RECHECK. PROCEDURES WOUND #4 WOUND #4 (VENOUS ULCER) IS LOCATED ON THE RIGHT LEG. A NON-SELECTIVE MECHANICAL DEBRIDEMENT WITH A TOTAL AREA DEBRIDED OF 0.45 SQ CM. WAS PERFORMED BY CHRISTOPHER STONE MD. NON- VIABLE TISSUE WAS REMOVED. THE PROCEDURE WAS TOLERATED WELL WITH A PAIN LEVEL OF 0 THROUGHOUT AND A PAIN LEVEL OF 0 FOLLOWING THE PROCEDURE. POST DEBRIDEMENT MEASUREMENTS: 0.3CM LENGTH X 1.5CM WIDTH X 0.1CM DEPTH; WITH AN AREA OF 0.45 SQ CM AND A VOLUME OF 0.045 CUBIC CM. ADDITIONAL INFORMATION METHOD USED: ABRASION DEVITALIZED TISSUE REMOVED: BIOFILM, EXUDATE WOUND #4 (VENOUS ULCER) IS LOCATED ON THE RIGHT LEG. A MULTILAYER COMPRESSION PROCEDURE WAS PERFORMED FOR THE LOWER RIGHT EXTREMITY BY JANNA MILTON RN. A 2 LAYER COBAN WRAP WAS APPLIED. THE KIANA TELLEZ [id number] 1965 PROCEDURE WAS TOLERATED WELL WITH A PAIN LEVEL OF 0 THROUGHOUT AND A PAIN LEVEL OF 0 FOLLOWING THE PROCEDURE. GENERAL NOTES COBAN 2 REGULARS A MULTILAYER COMPRESSION PROCEDURE WAS PERFORMED FOR THE LOWER LEFT EXTREMITY BY JANNA MILTON RN. A 2 LAYER COBAN WRAP WAS APPLIED. THE PROCEDURE WAS TOLERATED WELL WITH A PAIN LEVEL OF 0 THROUGHOUT AND A PAIN LEVEL OF 0 FOLLOWING THE PROCEDURE. GENERAL NOTES COBAN 2 REGULARS TO HELP MANAGE INCREASED EDEMA PLAN WOUND ORDERS: WOUND #4 RIGHT LEG CLEANSER CLEANSE WOUND WITH NORMAL SALINE CLEANSE WOUND WITH HYPOCHLOROUS ACID (VASHE OR SIMILAR) THEN APPLY HYPOCHLOROUS ACID SOAKED 4X4 GAUZE TO WOUND BED FOR 5-10 MINUTES AFTER WOUND ASSESSMENT COMPLETED. DRESSING ORDERS APPLY DRESSING(S) AND SECURE WITH: - XEROFORM, ABD ADDITIONAL ORDERS: DRESSING CHANGE FREQUENCY LEAVE DRESSING INTACT UNTIL YOUR NEXT WOUND CENTER APPOINTMENT. KEEP DRY. COMPRESSION/EDEMA CONTROL ELEVATE LEG(S) ABOVE THE LEVEL OF THE HEART MUCH POSSIBLE. AVOID STANDING IN ONE POSITION FOR MORE THAN 10 MINUTES. AVOID SITTING WITH LEGS DOWN. DO NOT CROSS LEGS WHEN SITTING. APPLY MULTI LAYER WRAP TO AFFECTED LEG(S) AT 20-30MMHG. - COBAN 2 REGULARS BILATERALLY DIETARY TAKE VITAMIN C 1000MG BY MOUTH DAILY. TAKE ZINC 25MG BY MOUTH DAILY. FOLLOW A DIABETIC DIET. INCREASE THE PROTEIN IN YOUR DIET. - DIABETIC PROTEIN SUPPLEMENT SUCH GLUCERNA. FOLLOW-UP APPOINTMENTS RETURN APPOINTMENT 1 WEEK SCRIBING ATTESTATION I ATTEST, THE NURSE, THAT I SCRIBED THESE ORDERS FOR THE WOUND CARE PROVIDER. PROVIDER REVIEW AND ATTESTATION: REVIEWED AND EVALUATED LABS. REVIEWED HOSPITAL RECORDS. DISCUSSED THE PLAN OF CARE @ BEDSIDE WITH - THE PATIENT I AGREE AND ATTEST TO THE ABOVE INFORMATION PROVIDED FROM OTHER LICENSED PROFESSIONALS. PLAN OF CARE: 01. ENSURE/ESTABLISH OPTIMAL BLOOD FLOW : - COMPLETE LOWER EXTREMITY ASSESSMENT STATUS: CONTINUED DATE: 05/03/2024 - PERFORM NON-INVASIVE VASCULAR TESTING (I.E. MERE) AND DOCUMENT FINDINGS. CONSIDER REPEATING WHEN WOUND HEALING <40% AFTER 30 DAYS OF WOUND CARE. STATUS: COMPLETED DATE: 02/01/2024 02. ASSESS FOR/TREAT INFECTION : - EVALUATE FOR SIGNS AND SYMPTOMS OF INFECTION AND DOCUMENT FINDINGS. STATUS: CONTINUED DATE: 05/03/2024 KIANA TELLEZ [id number] 1965 - OBTAIN CULTURE AND SENSITIVITY (CANDS) OR TISSUE CULTURE WHEN INFECTION IS SUSPECTED. (NOTE:) CONSIDER REPEATING WHEN WOUND HEALING <40% AFTER 30 DAYS OF WOUND CARE. STATUS: CONTINUED DATE: 05/03/2024 03. DEBRIDE WEEKLY OR MORE OFTEN PRN : - EVALUATE PATIENT IN CENTER WEEKLY TO ASSESS WOUND BED AND MARGINS FOR NEED FOR DEBRIDEMENT. STATUS: CONTINUED DATE: 05/03/2024 04. OPTIMIZE GLUCOSE CONTROL AND NUTRITION : - ORDER/REVIEW PERTINENT LABS TO EVALUATE RENAL FUNCTION, GLUCOSE CONTROL, AND NUTRITIONAL STATUS. STATUS: CONTINUED DATE: 05/03/2024 05. OFFLOADING PLAN : - REVIEWED, NOT APPLICABLE 06. OPTIMIZE HOST FACTORS: - ASSESS AND REVIEW PATIENT HISTORY FOR WOUND ETIOLOGY, CO-MORBID CONDITIONS, MEDICATION REGIME, AND SMOKING HISTORY. STATUS: CONTINUED DATE: 03/08/2024 07. DRESSING SELECTION : - EVALUATE FOR DRESSING-RELATED FACTORS, SUCH AVAILABILITY, WEAR TIME, ADAPTABILITY AND USE TO BETTER OPTIMIZE WOUND HEALING AND PATIENT COMPLIANCE. STATUS: CONTINUED DATE: 05/03/2024 08. ADVANCED MODALITIES : - EVALUATE FOR APPROPRIATENESS OF CELLULAR TISSUE PRODUCT THERAPY. STATUS: CONTINUED DATE: 04/05/2024 09. FALL PREVENTION : - COMPLETE FALL ASSESSMENT. STATUS: COMPLETED DATE: 01/12/2024 10. PAIN MANAGEMENT : - COMPLETE PAIN ASSESSMENT STATUS: CONTINUED DATE: 05/03/2024 11. MEASURABLE GOALS FOR WOUND HEALING AND/OR HYPERBARIC OXYGEN THERAPY : - WOUND CLOSURE STATUS: CONTINUED DATE: 05/03/2024 12. DURATION/FREQUENCY OF WOUND CARE VISITS : - 1X WEEKLY FOR 30 DAYS STATUS: CONTINUED DATE: 05/03/2024 ELECTRONIC SIGNATURE(S) SIGNED BY: DATE: CHRISTOPHER STONE MD 05/09/2024 16:19:23 (PT) ENTERED BY: CHRISTOPHER STONE MD ON 05/08/2024 12:22:51 (PT) KIANA TELLEZ [id number] 1965
== END ==
LOC: WC 10:21
PROVIDERS: PCP Family Medicine; Referring Provider Family Medicine; Visit Provider Surgery
DX: I87.2 Venous insufficiency (chronic) (peripheral) (principal); L97.811 Non-pressure chronic ulcer of other part of right lower leg limited to breakdown of skin; R60.0 Localized edema; E11.622 Type 2 diabetes mellitus with other skin ulcer
CPT/HCPCS: 97602; 99213

== ENCOUNTER → 2024-05-15 11:19 | Outpatient (CLI) | payer OTHER, MEDICAID, SELFPAY | PROVIDERS: PCP Family Medicine; Referring Provider Family Medicine; Visit Provider Surgery | DX: I87.2 Venous insufficiency (chronic) (peripheral) (principal); L97.822 Non-pressure chronic ulcer of other part of left lower leg with fat layer exposed; L97.812 Non-pressure chronic ulcer of other part of right lower leg with fat layer exposed; L03.115 Cellulitis of right lower limb; R60.0 Localized edema; L98.8 Other specified disorders of the skin and subcutaneous tissue; L53.8 Other specified erythematous conditions | CPT/HCPCS: 11042; 11045; 87070; 87075; 87077; 87147; 87186; 87205; 99213 ==

== ENCOUNTER → 2024-05-22 08:30 | Outpatient (CLI) | payer OTHER, MEDICAID, SELFPAY | PROVIDERS: PCP Family Medicine; Referring Provider Family Medicine; Visit Provider Surgery | DX: I87.2 Venous insufficiency (chronic) (peripheral) (principal); L97.812 Non-pressure chronic ulcer of other part of right lower leg with fat layer exposed; R60.0 Localized edema; L98.8 Other specified disorders of the skin and subcutaneous tissue | CPT/HCPCS: 97602; 99213 ==

== ENCOUNTER → 2024-05-29 09:40 | Outpatient (CLI) | payer OTHER, MEDICAID, SELFPAY | PROVIDERS: PCP Family Medicine; Referring Provider Family Medicine; Visit Provider Surgery | DX: I87.2 Venous insufficiency (chronic) (peripheral) (principal); L97.812 Non-pressure chronic ulcer of other part of right lower leg with fat layer exposed; R60.0 Localized edema; L98.8 Other specified disorders of the skin and subcutaneous tissue | CPT/HCPCS: 29580; 99213 ==

== ENCOUNTER → 2024-06-05 10:46 | Outpatient (CLI) | payer OTHER, MEDICAID, SELFPAY | PROVIDERS: PCP Family Medicine; Referring Provider Family Medicine; Visit Provider Physician Assistant | DX: I87.2 Venous insufficiency (chronic) (peripheral) (principal); L97.812 Non-pressure chronic ulcer of other part of right lower leg with fat layer exposed; L98.8 Other specified disorders of the skin and subcutaneous tissue; R60.0 Localized edema | CPT/HCPCS: 29580 ==

== ENCOUNTER → 2024-06-12 10:22 | Outpatient (CLI) | payer OTHER, MEDICAID, SELFPAY | PROVIDERS: PCP Family Medicine; Referring Provider Family Medicine; Visit Provider Surgery | DX: I87.2 Venous insufficiency (chronic) (peripheral) (principal); L97.812 Non-pressure chronic ulcer of other part of right lower leg with fat layer exposed; L03.115 Cellulitis of right lower limb; R60.0 Localized edema; L98.8 Other specified disorders of the skin and subcutaneous tissue | CPT/HCPCS: 97602; 99213 ==

== ENCOUNTER → 2024-06-19 14:33 | Outpatient (CLI) | payer OTHER, MEDICAID, SELFPAY | PROVIDERS: PCP Family Medicine; Referring Provider Family Medicine; Visit Provider Surgery | DX: I87.2 Venous insufficiency (chronic) (peripheral) (principal); R60.0 Localized edema | CPT/HCPCS: 99213 ==

== ENCOUNTER → 2024-07-11 08:45 | Outpatient (CLI) | payer OTHER, MEDICAID, SELFPAY | LOC: WC 08:53 | PROVIDERS: PCP Family Medicine; Referring Provider Family Medicine; Visit Provider Surgery | DX: I87.2 Venous insufficiency (chronic) (peripheral) (principal); L97.812 Non-pressure chronic ulcer of other part of right lower leg with fat layer exposed; R60.0 Localized edema; E11.40 Type 2 diabetes mellitus with diabetic neuropathy, unspecified; E11.622 Type 2 diabetes mellitus with other skin ulcer; L53.9 Erythematous condition, unspecified; L98.8 Other specified disorders of the skin and subcutaneous tissue; E66.9 Obesity, unspecified; Z68.34 Body mass index [BMI] 34.0-34.9, adult | CPT/HCPCS: 29581; 99213 ==

== ENCOUNTER → 2024-07-18 09:59 | Outpatient (CLI) | payer OTHER, MEDICAID, SELFPAY | PROVIDERS: PCP Family Medicine; Referring Provider Family Medicine; Visit Provider Surgery | DX: Z87.2 Personal history of diseases of the skin and subcutaneous tissue (principal); I87.2 Venous insufficiency (chronic) (peripheral); L97.811 Non-pressure chronic ulcer of other part of right lower leg limited to breakdown of skin; L97.821 Non-pressure chronic ulcer of other part of left lower leg limited to breakdown of skin; R60.0 Localized edema | CPT/HCPCS: 97602; 99213 ==

== ENCOUNTER → 2024-07-25 11:59 | Outpatient (CLI) | payer OTHER, MEDICAID, SELFPAY | PROVIDERS: PCP Family Medicine; Referring Provider Family Medicine; Visit Provider Surgery | DX: Z87.2 Personal history of diseases of the skin and subcutaneous tissue (principal); I87.2 Venous insufficiency (chronic) (peripheral); L97.821 Non-pressure chronic ulcer of other part of left lower leg limited to breakdown of skin; R60.0 Localized edema; E66.9 Obesity, unspecified; Z68.34 Body mass index [BMI] 34.0-34.9, adult | CPT/HCPCS: 29581; 99213 ==

== ENCOUNTER → 2024-08-01 13:35 | Outpatient (CLI) | payer OTHER, MEDICAID, SELFPAY | LOC: WC 13:54 | PROVIDERS: PCP Family Medicine; Referring Provider Family Medicine; Visit Provider Surgery | DX: Z87.2 Personal history of diseases of the skin and subcutaneous tissue (principal); L53.9 Erythematous condition, unspecified; R60.0 Localized edema | CPT/HCPCS: 99213 ==

== ENCOUNTER → 2024-09-04 11:18 | Outpatient (CLI) | payer OTHER, MEDICAID, SELFPAY | PROVIDERS: PCP Family Medicine; Referring Provider Family Medicine; Visit Provider Surgery | DX: I87.2 Venous insufficiency (chronic) (peripheral) (principal); L97.822 Non-pressure chronic ulcer of other part of left lower leg with fat layer exposed; L97.512 Non-pressure chronic ulcer of other part of right foot with fat layer exposed; L03.116 Cellulitis of left lower limb; L03.115 Cellulitis of right lower limb; L53.9 Erythematous condition, unspecified; R60.0 Localized edema; L84 Corns and callosities; E11.622 Type 2 diabetes mellitus with other skin ulcer; E66.9 Obesity, unspecified; Z68.35 Body mass index [BMI] 35.0-35.9, adult; H54.7 Unspecified visual loss; L60.0 Ingrowing nail; E11.40 Type 2 diabetes mellitus with diabetic neuropathy, unspecified; I10 Essential (primary) hypertension; L30.9 Dermatitis, unspecified; H91.90 Unspecified hearing loss, unspecified ear | CPT/HCPCS: 87070; 87075; 87077; 87147; 87205; 97597; 97598; 99213 ==

== ENCOUNTER → 2024-09-07 13:02 | Outpatient (CLI) | payer OTHER, MEDICAID, SELFPAY | PROVIDERS: PCP Family Medicine; Referring Provider Family Medicine; Visit Provider Nurse Practitioner Family | DX: I87.2 Venous insufficiency (chronic) (peripheral) (principal); L97.822 Non-pressure chronic ulcer of other part of left lower leg with fat layer exposed; L97.512 Non-pressure chronic ulcer of other part of right foot with fat layer exposed; R60.0 Localized edema; L53.9 Erythematous condition, unspecified | CPT/HCPCS: 29581 ==

== ENCOUNTER → 2024-09-11 14:47 | Outpatient (CLI) | payer OTHER, MEDICAID, SELFPAY | LOC: WC 14:47 | PROVIDERS: PCP Family Medicine; Referring Provider Family Medicine; Visit Provider Surgery | DX: I87.2 Venous insufficiency (chronic) (peripheral) (principal); L97.822 Non-pressure chronic ulcer of other part of left lower leg with fat layer exposed; Z87.2 Personal history of diseases of the skin and subcutaneous tissue; E11.40 Type 2 diabetes mellitus with diabetic neuropathy, unspecified; E11.622 Type 2 diabetes mellitus with other skin ulcer; L03.116 Cellulitis of left lower limb; L03.115 Cellulitis of right lower limb; Z79.84 Long term (current) use of oral hypoglycemic drugs | CPT/HCPCS: 29580; 99213 ==

== ENCOUNTER → 2024-09-14 11:58 | Outpatient (CLI) | payer OTHER, MEDICAID, SELFPAY | LOC: WC 11:59 | PROVIDERS: PCP Family Medicine; Referring Provider Family Medicine; Visit Provider Physician Assistant | DX: I87.2 Venous insufficiency (chronic) (peripheral) (principal); L97.822 Non-pressure chronic ulcer of other part of left lower leg with fat layer exposed; L97.812 Non-pressure chronic ulcer of other part of right lower leg with fat layer exposed; E11.622 Type 2 diabetes mellitus with other skin ulcer; Z79.84 Long term (current) use of oral hypoglycemic drugs | CPT/HCPCS: 29580 ==

== ENCOUNTER → 2024-09-18 11:36 | Outpatient (CLI) | payer OTHER, MEDICAID, SELFPAY | LOC: WC 11:37 | PROVIDERS: PCP Family Medicine; Referring Provider Family Medicine; Visit Provider Surgery | DX: L97.822 Non-pressure chronic ulcer of other part of left lower leg with fat layer exposed (principal); I87.2 Venous insufficiency (chronic) (peripheral); E11.622 Type 2 diabetes mellitus with other skin ulcer; R60.0 Localized edema | CPT/HCPCS: 29580; 99213 ==

== ENCOUNTER → 2024-09-21 11:23 | Outpatient (CLI) | payer OTHER, MEDICAID, SELFPAY | LOC: WC 11:23 | PROVIDERS: PCP Family Medicine; Referring Provider Family Medicine; Visit Provider Physician Assistant | DX: I87.2 Venous insufficiency (chronic) (peripheral) (principal); L53.8 Other specified erythematous conditions; L98.8 Other specified disorders of the skin and subcutaneous tissue | CPT/HCPCS: 29580 ==

== ENCOUNTER → 2024-09-25 11:27 | Outpatient (CLI) | payer OTHER, MEDICAID, SELFPAY | LOC: WC 11:27 | PROVIDERS: PCP Family Medicine; Referring Provider Family Medicine; Visit Provider Surgery | DX: I87.2 Venous insufficiency (chronic) (peripheral) (principal); R60.0 Localized edema; E11.40 Type 2 diabetes mellitus with diabetic neuropathy, unspecified; I10 Essential (primary) hypertension; E66.9 Obesity, unspecified; Z68.35 Body mass index [BMI] 35.0-35.9, adult | CPT/HCPCS: 99213 ==

== ENCOUNTER → 2024-10-25 09:45 | Outpatient (CLI) | payer OTHER, MEDICAID, SELFPAY | PROVIDERS: PCP Family Medicine; Referring Provider Family Medicine; Visit Provider Surgery | DX: I87.2 Venous insufficiency (chronic) (peripheral) (principal); L81.8 Other specified disorders of pigmentation; R60.0 Localized edema; E11.628 Type 2 diabetes mellitus with other skin complications | CPT/HCPCS: 99212; 99213 ==

== ENCOUNTER → 2024-12-05 10:49 | Outpatient (CLI) | payer OTHER, SELFPAY | PROVIDERS: PCP Student in an Organized Health Care Education/Training Program; Referring Provider Student in an Organized Health Care Education/Training Program; Visit Provider Surgery | DX: I87.2 Venous insufficiency (chronic) (peripheral) (principal); L97.912 Non-pressure chronic ulcer of unspecified part of right lower leg with fat layer exposed; L08.9 Local infection of the skin and subcutaneous tissue, unspecified; R60.0 Localized edema; L81.9 Disorder of pigmentation, unspecified; E11.628 Type 2 diabetes mellitus with other skin complications; E11.40 Type 2 diabetes mellitus with diabetic neuropathy, unspecified; I10 Essential (primary) hypertension; E66.9 Obesity, unspecified; Z68.34 Body mass index [BMI] 34.0-34.9, adult | CPT/HCPCS: 11042; 87070; 87075; 87077; 87147; 87205; 99213 ==

== ENCOUNTER → 2024-12-07 08:55 | Outpatient (CLI) | payer OTHER, SELFPAY | LOC: WC 08:55 | PROVIDERS: PCP Student in an Organized Health Care Education/Training Program; Referring Provider Student in an Organized Health Care Education/Training Program; Visit Provider Physician Assistant | DX: I87.2 Venous insufficiency (chronic) (peripheral) (principal); L97.812 Non-pressure chronic ulcer of other part of right lower leg with fat layer exposed; L53.8 Other specified erythematous conditions; R60.0 Localized edema | CPT/HCPCS: 29581 ==

== ENCOUNTER → 2024-12-12 15:21 | Outpatient (CLI) | payer OTHER, SELFPAY | LOC: WC 15:22 | PROVIDERS: PCP Student in an Organized Health Care Education/Training Program; Referring Provider Student in an Organized Health Care Education/Training Program; Visit Provider Surgery | DX: L97.812 Non-pressure chronic ulcer of other part of right lower leg with fat layer exposed (principal); L97.822 Non-pressure chronic ulcer of other part of left lower leg with fat layer exposed; I87.2 Venous insufficiency (chronic) (peripheral); L08.9 Local infection of the skin and subcutaneous tissue, unspecified; L53.9 Erythematous condition, unspecified; R60.0 Localized edema; E11.622 Type 2 diabetes mellitus with other skin ulcer; Z79.2 Long term (current) use of antibiotics | CPT/HCPCS: 11042; 99213 ==

== ENCOUNTER → 2024-12-18 14:36 | Outpatient (CLI) | payer OTHER, SELFPAY | LOC: WC 14:37 | PROVIDERS: PCP Student in an Organized Health Care Education/Training Program; Referring Provider Student in an Organized Health Care Education/Training Program; Visit Provider Surgery | DX: I87.2 Venous insufficiency (chronic) (peripheral) (principal); L97.812 Non-pressure chronic ulcer of other part of right lower leg with fat layer exposed; L97.822 Non-pressure chronic ulcer of other part of left lower leg with fat layer exposed; L53.8 Other specified erythematous conditions; R60.0 Localized edema | CPT/HCPCS: 11042 ==

== ENCOUNTER → 2024-12-21 11:03 | Outpatient (CLI) | payer OTHER, SELFPAY | LOC: WC 12-27 11:04 | PROVIDERS: PCP Student in an Organized Health Care Education/Training Program; Referring Provider Student in an Organized Health Care Education/Training Program; Visit Provider Physician Assistant | DX: L97.812 Non-pressure chronic ulcer of other part of right lower leg with fat layer exposed (principal); L97.822 Non-pressure chronic ulcer of other part of left lower leg with fat layer exposed; I87.2 Venous insufficiency (chronic) (peripheral); L53.9 Erythematous condition, unspecified; R60.0 Localized edema | CPT/HCPCS: 29580 ==

== ENCOUNTER → 2024-12-28 11:29 | Outpatient (CLI) | payer OTHER, SELFPAY | LOC: WC 11:30 | PROVIDERS: PCP Student in an Organized Health Care Education/Training Program; Referring Provider Student in an Organized Health Care Education/Training Program; Visit Provider Physician Assistant | DX: I87.2 Venous insufficiency (chronic) (peripheral) (principal); L97.812 Non-pressure chronic ulcer of other part of right lower leg with fat layer exposed; L97.822 Non-pressure chronic ulcer of other part of left lower leg with fat layer exposed | CPT/HCPCS: 29580 ==

== ENCOUNTER → 2025-01-01 15:10 | Outpatient (CLI) | payer OTHER, SELFPAY | LOC: WC 15:10 | PROVIDERS: PCP Student in an Organized Health Care Education/Training Program; Referring Provider Student in an Organized Health Care Education/Training Program; Visit Provider Surgery | DX: I87.2 Venous insufficiency (chronic) (peripheral) (principal); L53.8 Other specified erythematous conditions; R60.0 Localized edema; R23.4 Changes in skin texture | CPT/HCPCS: 99213 ==

== ENCOUNTER → 2025-01-15 09:56 | Outpatient (CLI) | payer OTHER, SELFPAY | LOC: WC 09:56 | PROVIDERS: PCP Student in an Organized Health Care Education/Training Program; Referring Provider Student in an Organized Health Care Education/Training Program; Visit Provider Surgery | DX: I87.2 Venous insufficiency (chronic) (peripheral) (principal); L97.822 Non-pressure chronic ulcer of other part of left lower leg with fat layer exposed; L53.8 Other specified erythematous conditions; L98.8 Other specified disorders of the skin and subcutaneous tissue; R60.0 Localized edema; E11.42 Type 2 diabetes mellitus with diabetic polyneuropathy | CPT/HCPCS: 11042; 29580; 99213 ==

== ENCOUNTER → 2025-01-18 12:49 | Outpatient (CLI) | payer OTHER, SELFPAY | LOC: WC 12:49 | PROVIDERS: PCP Student in an Organized Health Care Education/Training Program; Referring Provider Student in an Organized Health Care Education/Training Program; Visit Provider Physician Assistant | DX: I87.2 Venous insufficiency (chronic) (peripheral) (principal); L97.822 Non-pressure chronic ulcer of other part of left lower leg with fat layer exposed; L53.8 Other specified erythematous conditions; L98.8 Other specified disorders of the skin and subcutaneous tissue; R60.0 Localized edema | CPT/HCPCS: 29580 ==

== ENCOUNTER → 2025-01-22 11:19 | Outpatient (CLI) | payer OTHER, SELFPAY | PROVIDERS: Visit Provider Surgery | DX: I87.2 Venous insufficiency (chronic) (peripheral) (principal); L53.8 Other specified erythematous conditions; L98.8 Other specified disorders of the skin and subcutaneous tissue; E11.9 Type 2 diabetes mellitus without complications | CPT/HCPCS: 29580; 99212; 99213 ==

== ENCOUNTER → 2025-01-28 11:39 | Outpatient (CLI) | payer OTHER, SELFPAY | LOC: WC 11:40 | PROVIDERS: Referring Provider Family Medicine; Visit Provider Surgery | DX: I87.313 Chronic venous hypertension (idiopathic) with ulcer of bilateral lower extremity (principal) | CPT/HCPCS: 29580; 99213 ==

== ENCOUNTER → 2025-02-04 10:48 | Outpatient (CLI) | payer OTHER, SELFPAY | LOC: WC 10:56 | PROVIDERS: Visit Provider Surgery | DX: I87.2 Venous insufficiency (chronic) (peripheral) (principal); R60.0 Localized edema; L53.9 Erythematous condition, unspecified; E11.9 Type 2 diabetes mellitus without complications; Z79.2 Long term (current) use of antibiotics; Z87.2 Personal history of diseases of the skin and subcutaneous tissue | CPT/HCPCS: 99211; 99213 ==